=== PATIENT | female | born 1955 | race Caucasian/White ===

== ENCOUNTER → 2018-08-19 15:36 | Outpatient (CLI) | payer BC, SELFPAY ==
--- NOTE | 2018-08-19 15:37 | MM_ITS ---
MM Dig screening mamm BI w/CAD CAD Screening COMPARISON: Digital mammograms with CAD 07/23/2017 and 07/09/2016 INDICATION: There is a history of breast cancer patient's mother diagnosed after menopause. TECHNIQUE: Standard CC and MLO images were obtained. R2 CAD reviewed. FINDINGS: Diffuse heterogenic fibro glandular densities are seen throughout both breasts and the findings are bilateral and symmetrical. There is no suspicious lesion in either breast and there are no suspicious microcalcifications. IMPRESSION: Stable exam no suspicious lesion seen BI-RADS Category: 1 Negative RECOMMENDED FOLLOW-UP: 1YR - 1 YEAR FOLLOW-UP (A letter has been sent to the patient regarding results of the study.)
== END ==
PROVIDERS: Family Provider Family Medicine; PCP Family Medicine; Visit Provider Nurse Practitioner Obstetrics & Gynecology
DX: Z12.31 Encounter for screening mammogram for malignant neoplasm of breast (principal)
CPT/HCPCS: 77067

== ENCOUNTER → 2019-09-29 10:07 | Outpatient (CLI) | payer BC, SELFPAY ==
--- NOTE | 2019-09-29 10:10 | MM_ITS ---
PROCEDURE: MM DIG SCREENING MAMM BI W/CAD CLINICAL INDICATION: Routine Screening Mammogram There is a history of breast cancer patient's mother diagnosed after menopause. COMPARISON: [facility] DIG MAMM-SCREEN [facility] from 07/09/2016 [facility] DIG MAMM-SCREEN [facility] W/CAD from 07/23/2017 [facility] MM Dig screening mamm BI w/CAD from 08/19/2018 TECHNIQUE: Standard CC and MLO images were obtained. R2 CAD reviewed. FINDINGS: Moderate scattered fibroglandular densities are seen in the central portions of both breast. The findings are fairly symmetrical bilaterally. There is no new or suspicious lesion in either breast and no suspicious microcalcifications. IMPRESSION: Moderate diffuse breast density with no suspicious lesions seen BI-RAD Category: 1 Negative FOLLOW-UP: 1YR 1 Year Follow-up (A letter has been sent to the patient regarding results of the study.) Dictated by: Dr. Teddy Castaneda MD 10/01/2019 13:[address] Teddy Castaneda MD in [place] 10/01/2019 13:12
== END ==
PROVIDERS: PCP Family Medicine; Visit Provider Nurse Practitioner Obstetrics & Gynecology
DX: Z12.31 Encounter for screening mammogram for malignant neoplasm of breast (principal)
CPT/HCPCS: 77067

== ENCOUNTER → 2021-06-21 12:42 | Outpatient (CLI) | payer MEDICARE, SELFPAY ==
--- NOTE | 2021-06-21 12:42 | MM_ITS ---
PROCEDURE INFORMATION: Exam: MG Screening 3D Mammography Exam date and time: 06/21/2021 12:42 PM Age: 66 years old Clinical indication: Encounter for screening mammogram for malignant neoplasm of breast TECHNIQUE: Imaging protocol: Screening tomosynthesis and 2D mammography including computer-aided detection (CAD) when performed. COMPARISON: 1. MG MM DIG SCREENING MAMM BI W/CAD 09/29/2019 10:28 AM 2. MG [facility] MM Dig screening mamm BI w/CAD 08/19/2018 3:46 PM FINDINGS: MAMMOGRAPHY: Breast composition: The breast tissue is heterogeneously dense, which may obscure small masses. Mass: None. Architectural distortion: None. Calcifications: Indeterminate loosely grouped calcifications in the superficial aspect of the anterior left upper outer quadrant Asymmetric density: None. Skin thickening: None. Axillary adenopathy: None. IMPRESSION: Patient to be recalled for spot magnification views of the left breast in the CC and MLO projections for further evaluation of left breast calcifications. ASSESSMENT: BI-RADS Category 0: Incomplete- Need Additional Imaging Evaluation and/or Prior Mammograms for Comparison
== END ==
PROVIDERS: PCP Family Medicine; Visit Provider Nurse Practitioner Obstetrics & Gynecology
DX: Z12.31 Encounter for screening mammogram for malignant neoplasm of breast (principal)
CPT/HCPCS: 77063; 77067

== ENCOUNTER → 2021-06-26 16:14 | Outpatient (CLI) | payer MEDICARE, SELFPAY | PROVIDERS: Visit Provider Surgery | DX: Z01.812 Encounter for preprocedural laboratory examination (principal); Z20.822 Contact with and (suspected) exposure to COVID-19; Z12.11 Encounter for screening for malignant neoplasm of colon | CPT/HCPCS: U0003 ==

== ENCOUNTER 2021-06-28 06:45 | Day surgery (SDC) | payer MEDICARE, SELFPAY ==
[2021-06-26 14:13] VITALS: BMI 26.9
[2021-06-28] VITALS (7 sets, daily range): BP systolic 104–147; BP diastolic 54–79; PULSE 66–76; RESP 18–20; TEMP 36.2–36.3; O2SAT 97–100
--- NOTE | 2021-06-28 07:06 | P.PN_ITS ---
[facility] Anesthesia Checklist - Patient Identification Patient Identification: Arm Band - Structural Data Admitted From: Home Planned Operative Procedure/s: Colonoscopy Consent for Planned Operative Procedure(s) Verified: Yes - NPO Status Verified Time NPO: 04:30 (Prep) - Airway Assessment C-Spine Mobility Assessed: Yes TMJ Mobility Assessed: Yes Dentition: Good Dentition - Neurological Assessment Level of Consciousness: Awake Hx Seizures: No Numbness or tingling in extremities: No - Anesthesia Plan Anesthesia Risk discussed: Yes Anesthesia Plan: Verified ASA Class: II Anesthesia Type: MAC [facility] History I have reviewed the patient's past medical history: Yes Medical History: Reports:: Hyperlipidemia, Hypertension, Migraine Denies:: Anxiety, Cancer, Depression, Diabetes Mellitus Type 1, Diabetes Mellitus Type 2, Internal Pacemaker, MRSA, Seizures *Have you ever received a pneumonia vaccine?: No *Have you received a flu vaccine this season?: Yes Anesthesia experience/problems:: None Other Surgeries: Yes: Cholecystectomy, Colonoscopy, Tubal Ligation. No: Pacemaker Amputation: No Fractures: Yes - *Social History Last grade of school completed: Some college Smoking Status: Never smoker Alcohol Intake: never Substance Use Type: denies use *Occupational Status:: employed Housing: house Household Members: spouse *Travel in the last 8 weeks: Inside the [place] - Psychiatric History Pschychiatric History:: Denies:: Anxiety, Depression Family Hx:: No significant family history
--- NOTE | 2021-06-28 08:12 | HMH.SCOPE ---
- Procedure: Date: 06/28/21 Patient Date of :: 1955 Procedure Performed:: Total colonoscopy to terminal ileum with polypectomy by snare Indications:: Patient is a pleasant 66-year-old female who presents for follow-up colonoscopy scheduling. I had performed initial screening colonoscopy on her on 09/26/2006. 10-year follow-up was recommended. Subsequently her mother did develop colon cancer and required temporary ileostomy with ultimate reversal. I performed colonoscopy on 10/30/2016. Given the family history 5-year follow-up colonoscopy was recommended. Also of note, I had performed laparoscopic cholecystectomy on her on 03/02/2013. Primary care provider is Marlon Patel MD Performing Provider:: Foster Taveras MD Referring Provider:: Marlon Patel MD Sedation:: MAC sedation Procedure:: Patient was taken to endoscopy procedure room and positioned in a lateral decubitus position. Adequate intravenous sedation was achieved with anesthesia titration of propofol. Variable stiffness Olympus colonoscope was inserted via the anus. Was advanced to the cecum with some difficulty due to significant redundancy and tortuosity of the sigmoid colon. Ultimately it was advanced to the cecum. Ileocecal valve and appendiceal orifice were clearly identified. Colonoscope was advanced a short distance into the terminal ileum which appeared grossly normal. Colonoscope was withdrawn through the colon with careful surveillance. There was a small polyp near the hepatic flexure. This was removed with cold cutting snare and sent as ascending colon polyp. There was some particulate liquid stool throughout the colon but this was suctioned free allowing for adequate visualization. Within the rectum retroflexion was performed which revealed internal anal papillae. Colonoscope was withdrawn. Findings:: Small polyp near the hepatic flexure Recommendations:: Repeat colonoscopy pending pathology, likely 3 to 5 years in light of family history Complications:: None immediately apparent Estimated blood obtained (mL): 2
== END 2021-06-28 08:48 | disposition home or self-care (01) ==
LOC: OUTP 06:48
PROVIDERS: PCP Family Medicine; Visit Provider Surgery
PROC: 0DJD8ZZ Inspection of Lower Intestinal Tract, Via Natural or Artificial Opening Endoscopic (ICD-10-PCS; principal; 2021-06-28 08:00)
DX: Z12.11 Encounter for screening for malignant neoplasm of colon (principal); Z80.0 Family history of malignant neoplasm of digestive organs; K63.5 Polyp of colon; K62.89 Other specified diseases of anus and rectum; Z90.49 Acquired absence of other specified parts of digestive tract; E78.5 Hyperlipidemia, unspecified; I10 Essential (primary) hypertension; G43.909 Migraine, unspecified, not intractable, without status migrainosus; F41.9 Anxiety disorder, unspecified; F32.9 Major depressive disorder, single episode, unspecified; Z79.899 Other long term (current) drug therapy
CPT/HCPCS: 45385; 88305

== ENCOUNTER → 2021-07-18 13:38 | Outpatient (CLI) | payer MEDICARE, SELFPAY ==
--- NOTE | 2021-07-18 13:38 | MM_ITS ---
PROCEDURE: MM DIG MAMM DX UNILAT LT CAD Digital Breast Tomosynthesis Included CLINICAL INDICATION: evaluation of left breast calcifications. COMPARISON: [facility] MM Dig screening mamm BI w/CAD from 08/19/2018 MG MM DIG SCREENING MAMM BI W/CAD from 09/29/2019 MG MM DIG SCREENING MAMM BI W/CAD from 06/21/2021 TECHNIQUE: Standard CC and MLO images and 3D Tomosynthesis was obtained. R2 CAD reviewed. FINDINGS: The breasts are heterogeneously dense which may obscure small masses.. Loosely clustered benign-appearing calcifications are present in the retroareolar region. Since these are new would recommend six-month follow-up. No suspicious calcifications apparent IMPRESSION: BI-RAD Category: 3 Probably Benign Finding Short Term Follow-Up FOLLOW-UP: 6M 6 Month Follow-up (A letter has been sent to the patient regarding results of the study.) Dictated by: Gerald Nunes MD 07/26/2021 14:42 Gerald Nunes MD in [place] 07/26/2021 14:42
== END ==
PROVIDERS: PCP Family Medicine; Visit Provider Nurse Practitioner Obstetrics & Gynecology
DX: R92.8 Other abnormal and inconclusive findings on diagnostic imaging of breast (principal)
CPT/HCPCS: 77061; 77065; G0279

== ENCOUNTER → 2022-01-10 13:25 | Outpatient (CLI) | payer MEDICARE, SELFPAY ==
--- NOTE | 2022-01-10 13:25 | MM_ITS ---
PROCEDURE INFORMATION: Exam: MG Left Diagnostic Breast Tomosynthesis Exam date and time: 01/10/2022 1:25 PM Age: 66 years old Clinical indication: Patient recalled for further evaluation of left breast calcifications TECHNIQUE: Imaging protocol: Left Diagnostic tomosynthesis and 2D mammography including computer-aided detection (CAD) when performed. Unilateral or bilateral exam. COMPARISON: 1. MG MM DIG MAMM DX UNILAT LT CAD 07/18/2021 1:48 PM 2. MG MM DIG SCREENING MAMM BI W/CAD 06/21/2021 1:02 PM FINDINGS: MAMMOGRAPHY: The breast tissue is composed of scattered areas of fibroglandular density. There is no stellate mass, architectural distortion or suspicious microcalcifications in either breast to suggest malignancy. Magnification views of the anterior left upper outer quadrant demonstrate benign calcifications. No skin thickening or axillary adenopathy. IMPRESSION: No mammographic evidence of malignancy. Annual bilateral mammographic screening is recommended in June 2022 unless otherwise clinically indicated. ASSESSMENT: BI-RADS Category 2: Benign
== END ==
PROVIDERS: PCP Family Medicine; Visit Provider Nurse Practitioner Obstetrics & Gynecology
DX: R92.8 Other abnormal and inconclusive findings on diagnostic imaging of breast (principal)
CPT/HCPCS: 77061; 77065; G0279

== ENCOUNTER → 2022-05-21 08:33 | Outpatient (CLI) | payer MEDICARE, SELFPAY ==
[2022-05-18 19:00] LABS: Alanine Aminotransferase 16 U/L (12-78); Albumin Level 3.9 g/dl (3.5-5.0); Albumin/Globulin Ratio 1.6 (1.1-1.8); Alkaline Phosphatase 87 U/L (38-126); Anion Gap 9.4 mEq/L (5-15); Aspartate Amino Transferase 26 U/L (14-36); Bilirubin,Total 0.5 mg/dl (0.2-1.3); Blood Urea Nitrogen 12 mg/dl (7-17); Calcium 9.5 mg/dl (8.4-10.2); Carbon Dioxide 30 mmol/L (22.0-30.0); Chloride 105 mmol/L (98-107); Chol/HDL Ratio 3.2 (1-3.5); Cholesterol 198 mg/dl (140-200); Estimated Glomerular Filt Rate 55 ml/min (>60); GFR (African American) 67 ML/MIN (>60); Globulin 2.4 g/dL (1.3-3.2); Glucose 104 mg/dl (74-100); HDL Cholesterol 62 mg/dl (40-60); Potassium 4.4 mmoL/L (3.5-5.1); Sodium 140 mmol/L (136-145); Total Protein,Serum 6.3 g/dl (6.3-8.2); Triglycerides 110 mg/dl (30-150); VLDL Cholesterol 22 mg/dL (0-40)
[2022-05-18 19:01] LABS: Basophils # 0.1 K/mm3 (0-0.2); Basophils % 1.7 % (0.1-2.0); Eosinophils # 0.2 K/mm3 (0.0-0.4); Eosinophils % 4.4 % (0.1-12.0); Hematocrit 47.1 % (37.0-47.0); Hemoglobin 14.5 g/dL (12.2-16.2); Lymphocytes # 1.7 K/mm3 (0.7-4.5); Lymphocytes % 35.2 % (10-50); Mean Corpuscular HGB Conc 30.8 g/dL (31.8-35.4); Mean Corpuscular Hemoglobin 29.7 pg (27.0-31.2); Mean Corpuscular Volume 96.4 fl (81-99); Mean Platelet Volume 10.5 fl (7.4-10.4); Monocytes # 0.3 K/mm3 (0.1-1.0); Monocytes % 7.1 % (1.7-9.3); Neutrophils # 2.5 K/mm3 (1.8-7.8); Neutrophils % 51.6 % (37.0-80.0); Platelet Count 261 K/mm3 (142-424); Red Blood Count 4.89 M/mm3 (4.20-5.40); Red Cell Distribution Width 13.4 % (11.5-17.5); White Blood Count 4.9 K/mm3 (4.8-10.8)
[2022-05-18 19:12] LABS: Direct LDL Cholesterol 91.23 mg/dL (100-129)
[2022-05-18 19:18] LABS: 25-OH Vitamin D, Total 41.3 ng/mL (30-100)
[2022-05-18 19:31] LABS: Thyroid Stimulating Hormone 1.25 uIU/mL (0.465-4.68)
[2022-05-18 19:50] LABS: Vitamin B12 464 pg/mL (239-931)
[2022-05-18 20:27] LABS: Hemoglobin A1C 5.1 % (4.0-6.0)
== END ==
PROVIDERS: Visit Provider Nurse Practitioner
DX: E78.5 Hyperlipidemia, unspecified (principal); I10 Essential (primary) hypertension; E55.9 Vitamin D deficiency, unspecified; Z79.899 Other long term (current) drug therapy
CPT/HCPCS: 80053; 80061; 82306; 82607; 83036; 84443; 85025

== ENCOUNTER → 2023-02-08 10:46 | Outpatient (CLI) | payer MEDICARE, SELFPAY ==
[2023-02-08 18:49] LABS: Alanine Aminotransferase 14 U/L (12-78); Albumin Level 4.3 g/dl (3.5-5.0); Albumin/Globulin Ratio 1.7 (1.1-1.8); Alkaline Phosphatase 88 U/L (38-126); Anion Gap 10.3 mEq/L (5-15); Aspartate Amino Transferase 26 U/L (14-36); Bilirubin,Total 1.2 mg/dl (0.2-1.3); Blood Urea Nitrogen 20 mg/dl (7-17); Calcium 9.1 mg/dl (8.4-10.2); Carbon Dioxide 31 mmol/L (22.0-30.0); Chloride 102 mmol/L (98-107); Chol/HDL Ratio 3.7 (1-3.5); Cholesterol 206 mg/dl (140-200); Estimated Glomerular Filt Rate 55 ml/min (>60); GFR (African American) 67 ML/MIN (>60); Globulin 2.5 g/dL (1.3-3.2); Glucose 94 mg/dl (74-100); HDL Cholesterol 55 mg/dl (40-60); Potassium 4.3 mmoL/L (3.5-5.1); Sodium 139 mmol/L (136-145); Total Protein,Serum 6.8 g/dl (6.3-8.2); Triglycerides 183 mg/dl (30-150); VLDL Cholesterol 37 mg/dL (0-40)
[2023-02-08 18:53] LABS: Creatinine,Urine Random 158 mg/dL (Not Estab.)
[2023-02-08 18:54] LABS: Microalbumin/Creatinine Ratio 4.4
[2023-02-08 19:00] LABS: Direct LDL Cholesterol 104.92 mg/dL (100-129)
[2023-02-08 19:05] LABS: 25-OH Vitamin D, Total 62.1 ng/mL (30-100)
== END ==
PROVIDERS: PCP Nurse Practitioner; Visit Provider Nurse Practitioner
DX: E78.5 Hyperlipidemia, unspecified (principal); E55.9 Vitamin D deficiency, unspecified; I10 Essential (primary) hypertension
CPT/HCPCS: 80053; 80061; 82043; 82306; 82570

== ENCOUNTER → 2023-02-20 23:25 | Outpatient (CLI) | payer MEDICARE, SELFPAY | PROVIDERS: PCP Nurse Practitioner; Visit Provider Nurse Practitioner | DX: U07.1 COVID-19; R51.9 Headache, unspecified; R05.9 Cough, unspecified; J02.9 Acute pharyngitis, unspecified | CPT/HCPCS: C9803; U0003; U0005 ==

== ENCOUNTER → 2023-06-06 16:16 | Outpatient (CLI) | payer MEDICARE, SELFPAY ==
[2023-06-06 18:23] LABS: Basophils # 0.1 K/mm3 (0-0.2); Basophils % 0.8 % (0.1-2.0); Eosinophils # 0.5 K/mm3 (0.0-0.4); Eosinophils % 6.7 % (0.1-12.0); Hematocrit 44.4 % (37.0-47.0); Hemoglobin 14.2 g/dL (12.2-16.2); Lymphocytes # 2.1 K/mm3 (0.7-4.5); Mean Corpuscular Hemoglobin 29.3 pg (27.0-31.2); Mean Corpuscular Volume 91.6 fl (81-99); Mean Platelet Volume 8.7 fl (7.4-10.4); Monocytes # 0.4 K/mm3 (0.1-1.0); Monocytes % 6.4 % (1.7-9.3); Neutrophils # 3.7 K/mm3 (1.8-7.8); Neutrophils % 55.1 % (37.0-80.0); Platelet Count 257 K/mm3 (142-424); Red Blood Count 4.85 M/mm3 (4.20-5.40); Red Cell Distribution Width 12.8 % (11.5-17.5); White Blood Count 6.7 K/mm3 (4.8-10.8)
[2023-06-06 18:28] LABS: Alanine Aminotransferase 17 U/L (12-78); Albumin Level 4.3 g/dl (3.5-5.0); Albumin/Globulin Ratio 1.7 (1.1-1.8); Alkaline Phosphatase 88 U/L (38-126); Aspartate Amino Transferase 28 U/L (14-36); Blood Urea Nitrogen 16 mg/dl (7-17); Calcium 9.6 mg/dl (8.4-10.2); Carbon Dioxide 30 mmol/L (22.0-30.0); Chloride 105 mmol/L (98-107); Estimated Glomerular Filt Rate 55 ml/min (>60); GFR (African American) 67 ML/MIN (>60); Globulin 2.6 g/dL (1.3-3.2); Glucose 94 mg/dl (74-100); Sodium 141 mmol/L (136-145); Total Protein,Serum 6.9 g/dl (6.3-8.2)
[2023-06-06 18:58] LABS: Thyroid Stimulating Hormone 0.96 uIU/mL (0.465-4.68)
== END ==
PROVIDERS: PCP Nurse Practitioner; Visit Provider Nurse Practitioner
DX: R42 Dizziness and giddiness (principal); I10 Essential (primary) hypertension
CPT/HCPCS: 80053; 84443; 85025

== ENCOUNTER → 2023-09-02 12:44 | Outpatient (CLI) | payer MEDICARE, SELFPAY ==
--- NOTE | 2023-09-02 12:44 | MM_ITS ---
PROCEDURE INFORMATION: Exam: MG Bilateral Screening 3D Mammography Exam date and time: 09/02/2023 12:43 PM Age: 68 years old Clinical indication: Screening examination TECHNIQUE: Imaging protocol: Bilateral Screening tomosynthesis and 2D mammography including computer-aided detection (CAD) when performed. COMPARISON: 1. MG MM DIG MAMM DX UNILAT LT CAD 01/10/2022 1:29 PM 2. MG MM DIG MAMM DX UNILAT LT CAD 07/18/2021 1:48 PM FINDINGS: MAMMOGRAPHY: Breast composition: There are scattered areas of fibroglandular density. Mass: None. Architectural distortion: None. Calcifications: No suspicious calcifications. Asymmetric density: None. Skin thickening: None. Axillary adenopathy: None. IMPRESSION: No mammographic evidence of malignancy. Annual screening is recommended unless otherwise clinically indicated. ASSESSMENT: BI-RADS Category 1: Negative
== END ==
PROVIDERS: PCP Nurse Practitioner; Visit Provider Nurse Practitioner Obstetrics & Gynecology
DX: Z12.31 Encounter for screening mammogram for malignant neoplasm of breast (principal)
CPT/HCPCS: 77063; 77067

== ENCOUNTER 2024-02-26 18:00 | Outpatient (CLI) | payer MEDICARE, SELFPAY ==
[2024-02-26 18:41] LABS: Basophils # 0.1 K/mm3 (0-0.2); Basophils % 1.5 % (0.1-2.0); Eosinophils # 0.6 K/mm3 (0.0-0.4); Eosinophils % 10.5 % (0.1-12.0); Hematocrit 46.1 % (37.0-47.0); Hemoglobin 14.5 g/dL (12.2-16.2); Lymphocytes # 1.8 K/mm3 (0.7-4.5); Lymphocytes % 29.6 % (10-50); Mean Corpuscular HGB Conc 31.5 g/dL (31.8-35.4); Mean Corpuscular Hemoglobin 30.4 pg (27.0-31.2); Mean Corpuscular Volume 96.6 fl (81-99); Mean Platelet Volume 9.8 fl (7.4-10.4); Monocytes # 0.3 K/mm3 (0.1-1.0); Monocytes % 5.6 % (1.7-9.3); Neutrophils # 3.2 K/mm3 (1.8-7.8); Neutrophils % 52.8 % (37.0-80.0); Platelet Count 222 K/mm3 (142-424); Red Blood Count 4.77 M/mm3 (4.20-5.40); Red Cell Distribution Width 13.2 % (11.5-17.5); White Blood Count 6.1 K/mm3 (4.8-10.8)
[2024-02-26 18:47] LABS: Alanine Aminotransferase 19 U/L (12-78); Albumin Level 3.8 g/dl (3.5-5.0); Albumin/Globulin Ratio 1.6 (1.1-1.8); Alkaline Phosphatase 79 U/L (38-126); Anion Gap 7.6 mEq/L (5-15); Aspartate Amino Transferase 31 U/L (14-36); Bilirubin,Total 0.9 mg/dl (0.2-1.3); Blood Urea Nitrogen 19 mg/dl (7-17); Calcium 9.5 mg/dl (8.4-10.2); Carbon Dioxide 29 mmol/L (22.0-30.0); Chloride 108 mmol/L (98-107); Cholesterol 206 mg/dl (140-200); Estimated Glomerular Filt Rate 55 ml/min (>60); GFR (African American) 67 ML/MIN (>60); Globulin 2.4 g/dL (1.3-3.2); Glucose 105 mg/dl (74-100); HDL Cholesterol 52 mg/dl (40-60); Potassium 4.6 mmoL/L (3.5-5.1); Sodium 140 mmol/L (136-145); Total Protein,Serum 6.2 g/dl (6.3-8.2); Triglycerides 134 mg/dl (30-150); VLDL Cholesterol 27 mg/dL (0-40)
[2024-02-26 18:58] LABS: Direct LDL Cholesterol 105.06 mg/dL (100-129)
[2024-02-26 19:07] LABS: 25-OH Vitamin D, Total 45.7 ng/mL (30-100)
[2024-02-26 19:39] LABS: Vitamin B12 473 pg/mL (239-931)
[2024-02-26 20:03] LABS: Creatinine,Urine Random 139 mg/dL (Not Estab.)
[2024-02-26 20:08] LABS: Microalbumin/Creatinine Ratio 4.6
[2024-02-26 20:14] LABS: Thyroid Stimulating Hormone 1.45 uIU/mL (0.465-4.68)
== END 2024-02-26 23:59 | disposition home or self-care (01) ==
LOC: LAB.DROPOF 02-27 13:55
PROVIDERS: PCP Nurse Practitioner; Visit Provider Nurse Practitioner
DX: I10 Essential (primary) hypertension (principal); E78.5 Hyperlipidemia, unspecified; E55.9 Vitamin D deficiency, unspecified; Z68.29 Body mass index [BMI] 29.0-29.9, adult
CPT/HCPCS: 80053; 80061; 82043; 82306; 82570; 82607; 84443; 85025

== ENCOUNTER 2025-01-13 12:53 | Outpatient (CLI) | payer MEDICARE, SELFPAY ==
--- NOTE | 2025-01-13 12:56 | MM_ITS ---
PROCEDURE INFORMATION: Exam: MG Bilateral Screening 3D Mammography Exam date and time: 01/13/2025 1:06 PM Age: 69 years old Clinical indication: Screening examination TECHNIQUE: Imaging protocol: Bilateral Screening tomosynthesis and 2D mammography including computer-aided detection (CAD) when performed. COMPARISON: 1. MG MM DIG SCREENING MAMM BI W/CAD 09/02/2023 12:43 PM 2. MG MM DIG MAMM DX UNILAT LT CAD 01/10/2022 1:29 PM FINDINGS: MAMMOGRAPHY: Breast composition: There are scattered areas of fibroglandular density. Mass: None. Architectural distortion: None. Calcifications: No suspicious calcifications. Asymmetric density: None. Skin thickening: None. Axillary adenopathy: None. IMPRESSION: No mammographic evidence of malignancy. Annual screening is recommended unless otherwise clinically indicated. ASSESSMENT: BI-RADS Category 1: Negative.
== END 2025-01-13 23:59 | disposition home or self-care (01) ==
LOC: RAD 12:54
PROVIDERS: PCP Nurse Practitioner; Visit Provider Nurse Practitioner Obstetrics & Gynecology
DX: Z12.31 Encounter for screening mammogram for malignant neoplasm of breast (principal)
CPT/HCPCS: 77063; 77067

== ENCOUNTER 2025-05-17 10:34 | Outpatient (CLI) | payer MEDICARE, SELFPAY ==
[2025-05-17 19:03] LABS: Basophils # 0.1 K/mm3 (0-0.2); Eosinophils # 0.4 Kmm3 (0.0-0.4); Eosinophils % 7.2 % (0.1-12.0); Hematocrit 46.3 % (37.0-47.0); Hemoglobin 14.4 g/dL (12.2-16.2); Immature Granulocytes # 0.01 10^3uL; Immature Granulocytes % 0.2 %; Lymphocytes # 1.8 K/mm3 (0.7-4.5); Mean Corpuscular HGB Conc 31.1 g/dL (31.8-35.4); Mean Corpuscular Hemoglobin 28.8 pg (27.0-31.2); Mean Corpuscular Volume 92.6 fl (81-99); Mean Platelet Volume 11.7 fl (7.4-10.4); Monocytes # 0.4 K/mm3 (0.1-1.0); Monocytes % 6.6 % (1.7-9.3); Neutrophils # 3.2 K/mm3 (1.8-7.8); Nucleated Red Blood Cells # 0 10^3/uL; Nucleated Red Blood Cells % 0 %; Platelet Count 235 K/mm3 (142-424); Red Cell Distribution Width-SD 44.1 fL; White Blood Count 5.9 K/mm3 (4.8-10.8)
[2025-05-17 19:18] LABS: Creatinine,Urine Random 71 mg/dL (Not Estab.)
[2025-05-17 19:19] LABS: Microalbumin < 6.000 mg/L (0-16.7)
[2025-05-17 19:47] LABS: Chloride 103 mmol/L (98-107); Sodium 141 mmol/L (136-145)
[2025-05-17 19:48] LABS: Potassium 4.6 mmoL/L (3.5-5.1)
[2025-05-17 19:50] LABS: Alanine Aminotransferase 14 U/L (12-78); Albumin/Globulin Ratio 1.9 (1.1-1.8); Alkaline Phosphatase 96 U/L (38-126); Anion Gap 14.6 mEq/L (5-15); Aspartate Amino Transferase 22 U/L (14-36); Bilirubin,Total 0.7 mg/dl (0.2-1.3); Blood Urea Nitrogen 14 mg/dl (7-17); Carbon Dioxide 28 mmol/L (22.0-30.0); Cholesterol 198 mg/dl (140-200); Estimated Glomerular Filt Rate 55 ml/min (>60); GFR (African American) 67 ML/MIN (>60); Globulin 2.1 g/dL (1.3-3.2); Total Protein,Serum 6.1 g/dl (6.3-8.2); Triglycerides 123 mg/dl (30-150); VLDL Cholesterol 25 mg/dL (0-40)
[2025-05-17 19:51] LABS: Calcium 9.2 mg/dl (8.4-10.2); Chol/HDL Ratio 3.2 (1-3.5); Glucose 97 mg/dl (74-100); HDL Cholesterol 61 mg/dl (40-60)
[2025-05-17 20:02] LABS: Direct LDL Cholesterol 103.22 mg/dL (100-129)
[2025-05-17 20:14] LABS: 25-OH Vitamin D, Total 33.9 ng/mL (30-100)
[2025-05-17 20:22] LABS: Thyroid Stimulating Hormone 1.75 uIU/mL (0.465-4.68)
[2025-05-17 20:37] LABS: HIV Combo NEGATIVE (Negative)
[2025-05-17 20:41] LABS: Hepatitis C Ab Qual. W/ RFX NEGATIVE (Negative)
[2025-05-17 20:52] LABS: Vitamin B12 455 pg/mL (239-931)
[2025-05-19 05:09] LABS: Hepatitis B Surface Antigen Negative (Negative)
== END 2025-05-17 23:59 | disposition home or self-care (01) ==
LOC: LAB.DROPOF 05-19 10:35
PROVIDERS: PCP Nurse Practitioner; Visit Provider Nurse Practitioner
DX: Z11.59 Encounter for screening for other viral diseases (principal); I10 Essential (primary) hypertension; E78.5 Hyperlipidemia, unspecified; E55.9 Vitamin D deficiency, unspecified; R73.01 Impaired fasting glucose
CPT/HCPCS: 80053; 80061; 82043; 82306; 82570; 82607; 83036; 84443; 85025; 86803; 87340; 87389

== ENCOUNTER 2025-07-22 13:00 | Outpatient (CLI) | payer MEDICARE, SELFPAY ==
[2025-07-22 19:16] LABS: Influenza A, PCR Not Detected (NotDetected); Influenza B, PCR Not Detected (NotDetected)
[2025-07-22 19:22] LABS: Hematocrit 44.8 % (37.0-47.0); Hemoglobin 14.4 g/dL (12.2-16.2); Immature Granulocytes % 0 %; Mean Corpuscular HGB Conc 32.1 g/dL (31.8-35.4); Mean Corpuscular Hemoglobin 29.4 pg (27.0-31.2); Mean Corpuscular Volume 91.4 fl (81-99); Nucleated Red Blood Cells % 0 %; Platelet Count 231 K/mm3 (142-424); Red Blood Count 4.90 M/mm3 (4.20-5.40); Red Cell Distribution Width-SD 44.6 fL; White Blood Count 4.3 K/mm3 (4.8-10.8)
[2025-07-22 22:37] LABS: Coronavirus 19, PCR Detected (NotDetected)
== END 2025-07-22 23:59 ==
LOC: LAB.DROPOF 07-26 09:04
PROVIDERS: PCP Nurse Practitioner; Visit Provider Nurse Practitioner
DX: J06.9 Acute upper respiratory infection, unspecified (principal)
CPT/HCPCS: 85025; 87636

== ENCOUNTER 2025-09-22 08:57 | Outpatient (CLI) | payer MEDICARE, SELFPAY ==
--- NOTE | 2025-09-22 08:59 | XR_ITS ---
FINAL REPORT CLINICAL HISTORY: bronchitis, cough, wheeze FINDINGS: PA and lateral views of the chest are obtained. There is no prior exam for comparison. The cardiac and mediastinal silhouettes are within normal limits. The lungs are clear. There is no pleural effusion, pneumothorax, or acute osseous abnormality. IMPRESSION: No radiographic evidence of acute cardiac or pulmonary disease. Reviewed, Interpreted and Dictated by Apoorva Pineda MD Transcribed by Reyna Corcoran Authenticated and [facility]
== END 2025-09-22 23:59 | disposition home or self-care (01) ==
LOC: RAD 08:58
PROVIDERS: PCP Nurse Practitioner; Visit Provider Nurse Practitioner
DX: J40 Bronchitis, not specified as acute or chronic (principal)
CPT/HCPCS: 71046